=== PATIENT | male | born 1990 | race Asian ===

== ENCOUNTER → 2019-03-14 18:17 | Outpatient (CLI) | payer OTHER | END | disposition home or self-care (01) | LOC: AMB 18:17 | DX: Z04.1 Encounter for examination and observation following transport accident (principal) ==

== ENCOUNTER 2022-08-08 07:03 | Emergency (ER) | payer OTHER ==
[~2022-08-08] VITALS: Ht 170.2 cm; Wt 71.7 kg
[2022-08-08 07:09] VITALS: TEMP 98.2
[2022-08-08 08:20] VITALS: BP 135/76
== END 2022-08-08 08:22 | disposition home or self-care (01) ==
LOC: ED 07:03
DX: B34.9 Viral infection, unspecified (principal); Z20.822 Contact with and (suspected) exposure to COVID-19
CPT/HCPCS: 87502; 87635; 99283; U0003